=== PATIENT | male | born 1980 | race Two or more races ===

== ENCOUNTER 2016-08-02 06:46 | Emergency (ER) | payer MEDICAID ==
[~2016-08-02] VITALS: Ht 167.6 cm; Wt 61.2 kg
[~2016-08-02 06:46] MED LIST: IBUPROFEN600 MG ORAL; NKM; PEPCID40 MG PO; VIBRAMYCIN100 MG ORAL
[2016-08-02 07:21] LABS: APPEARANCE,URINE CLEAR; KETONES,URINE NEGATIVE (NEGATIVE); LEUKOCYTE ESTERASE ,URINE NEGATIVE (NEGATIVE); NITRITE,URINE NEGATIVE (NEGATIVE); PH,URINE 6.5 (4.5-8.0); PROTEIN,URINE NEGATIVE (NEGATIVE); UROBILINOGEN,URINE NORMAL MG/DL (0.0-1.0)
[2016-08-02 07:29] VITALS: BP 135/86
[2016-08-02 07:44] LABS: WBC,URINE 0-2 /HPF (0 - 0)
[2016-08-02 07:45] LABS: BACTERIA,URINE OCCASIONAL /HPF
--- NOTE | 2016-08-02 08:13 | Emergency Room Report ---
History of Present Illness General Chief Complaint: Male Urogenital Problems Source: Patient Present Illness HPI Patient presents emergency department today complaining of testicular discomfort. Patient states that he has had intermittent testicular pain over last few months. Review medical records shows that he has history of orchitis. Patient also complains of some mild back pain. Patient denies any dysuria. No fever chest pain shortness breath. No other complaints noted.No other modifying factors. No other associated signs and symptoms. No other complaints were noted. Allergies: Coded Allergies: NO KNOWN ALLERGIES (Unverified Allergy, Unknown, 06/06/15) Patient History Past Medical History: other Past Surgical History: none Pertinent Family History: none Social History: Reports: alcohol use Reviewed Nursing Documentation: PMH: Agreed, PSxH: Agreed Nursing Documentation-PMH Past Medical History: No Stated History Review of Systems All Other Systems: negative except mentioned in HPI Physical Exam Vital Signs Date Time Temp Pulse Resp B/P Pulse Ox O2 Delivery O2 Flow Rate FiO2 08/02/16 06:42 98.2 96 16 133/88 97 Room Air Sp02 EP Interpretation: reviewed, normal General Appearance: normal inspection, well appearing, no apparent distress, alert, other - appears little sleepy, unkepted, smells of ETOH Head: atraumatic ENT: normal ENT inspection, hearing grossly normal, normal voice Neck: normal inspection, full range of motion, supple, no bony tend Respiratory: normal inspection, lungs clear, normal breath sounds, no respiratory distress, no retraction, no wheezing Cardiovascular #1: regular rate, rhythm, no edema Gastrointestinal: normal inspection, normal bowel sounds, non tender, soft, no guarding, no hernia Genitourinary: other - mild tender testicle, no swelling, no hernia Musculoskeletal: normal inspection, back normal, normal range of motion Neurologic: normal inspection, alert, responsive, speech normal Psychiatric: normal inspection, mood/affect normal, other - decreased judgement Skin: normal inspection, normal color, no rash Medical Decision Making Diagnostic Impression: Primary Impression: Varicocele Additional Impressions: Orchitis Alcohol abuse ER Course Patient presents emergency department today with testicular pain. Differential diagnoses include orchitis, varicocele, hydrocele, testicular torsion just name a few. I felt was highly complex case patient required ultrasound as well as laboratory workup. Patient's testicular ultrasound shows evidence of varicocele versus orchitis. Urine was negative for infection. Given patient's history of felt it was prudent to provide patient with antibiotics. Patient is advised to take Motrin or Toradol for pain. Recommend stop drinking.Patient is advised to follow up with primary doctor in 2-3 days and return the emergency room for any worsening symptoms and as needed. Labs Test 08/02/16 07:07 Urine Color Pale yellow Urine Appearance Clear Urine pH 6.5 (4.5-8.0) Urine Specific [place] 1.005 (1.005-1.035) Urine Protein Negative (NEGATIVE) Urine Glucose (UA) Negative (NEGATIVE) Urine Ketones Negative (NEGATIVE) Urine Occult Blood 2+ (NEGATIVE) Urine Nitrite Negative (NEGATIVE) Urine Bilirubin Negative (NEGATIVE) Urine Urobilinogen Normal MG/DL (0.0-1.0) Urine Leukocyte Esterase Negative (NEGATIVE) Urine RBC 2-4 /HPF (0 - 0) Urine WBC 0-2 /HPF (0 - 0) Urine Squamous Epithelial Cells None /LPF (NONE/OCC) Urine Bacteria Occasional /HPF (NONE) Last Vital Signs Date Time Temp Pulse Resp B/P Pulse Ox O2 Delivery O2 Flow Rate FiO2 08/02/16 07:29 98.2 79 16 135/86 97 Room Air Status: improved Disposition: HOME, SELF-CARE Condition: Stable Referrals: [facility]ERR[facility] (PCP) MANDIE MILLER M.D. Aug 02, 2016 08:13
--- NOTE | 2016-08-02 09:28 | Diagnostic Imaging Report ---
Indications: Left scrotal pain Technique: Grayscale and duplex images of the scrotum Comparison:None Findings:The right testicle measures 3cm in length. It demonstrates normal echogenicity. Normal Doppler flow. Normal epididymis. There is a small hydrocele The left testicle measures 4 cm in length. It demonstrates normal echogenicity and normal Doppler flow, although the degree of vascularity appears slightly greater than that seen on the right.. Normal epididymis. There is a moderate size hydrocele and a small varicocele Impression: No evidence of testicular torsion Equivocal slight hypervascularity of the left testicle, if real could indicate mild orchitis changes. Correlate with clinical findings Bilateral hydroceles, left greater than right Small left varicocele
[2016-08-02] MEDS ORDERED: Azithromycin 250mg tab ORAL ONE (09:45)
[2016-08-02] MEDS ORDERED: Lidocaine 1% MPF 10mg/ml 5ml ONE (09:54)
[2016-08-02 10:18] VITALS: BP 128/85
[2016-08-02 10:19] VITALS: BP 135/86
== END 2016-08-02 10:21 | disposition home or self-care (01) ==
LOC: EDBD 06:46 → EMR 07:00
DX: I86.1 Scrotal varices (principal); N45.2 Orchitis; F10.10 Alcohol abuse, uncomplicated; M54.5 Low back pain
CPT/HCPCS: 76870; 81003; 96372; 99284; J0696; Q0144